=== PATIENT | female | born 1970 | race Caucasian/White ===

== ENCOUNTER 2022-07-19 09:49 | Emergency (ER) | payer MEDICARE, OTHER ==
[~2022-07-19] VITALS: Ht 162.5 cm; Wt 58.9 kg
[2022-07-19 09:57] VITALS: BP 135/58
--- NOTE | 2022-07-19 10:21 | ED Upper Extremity ---
General Chief Complaint: Upper Extremity Stated Complaint: RT HAND INJ Source: patient Exam Limitations: no limitations ([place] ESQUIVEL) History of Present Illness Date Seen by Provider: Jul 19, 2022 Time Seen by Provider: 10:14 Initial Comments 52 F presents to ED with right hand pain that is described as a chronic ache ra garry 01/14 after punching a wall 8 days ago. Pain is located over the dorsal medial aspect of the rt hand with radiation to the ulnar styloid. Diffuse swelling and ecchymosis over the dorsum of the rt hand and medial forearm. Pt reports decreased sensation over the 4th and 5th phalanges and medial forearm. worse with movement. improves with rest. Pt has had a pin placed in her rt 5th digit years ago. Onset: last week Severity: moderate Pain/Injury Location: right wrist, right hand, right 4th finger, right 5th finger Method of Injury: direct blow (punched wall ) Modifying Factors: Improves With Movement (worsens ) ([place] ESQUIVEL) Allergies and Home Medications Allergies Coded Allergies: adhesive (Verified Allergy, Unknown, 07/19/22) aspirin (Verified Allergy, Unknown, 07/19/22) Patient Home Medication List Home Medication List Reviewed: Yes ([place] ESQUIVEL) Review of Systems Constitutional: No chills, No diaphoresis EENTM: no symptoms reported Respiratory: No cough, No short of breath Cardiovascular: No chest pain, No palpitations Gastrointestinal: No abdominal pain, No nausea, No vomiting Genitourinary: no symptoms reported : No Musculoskeletal: joint pain, joint swelling Skin: change in color (ecchymosis of medial rt hand) Psychiatric/Neurological: No Symptoms Reported ([place] ESQUIVEL) Physical Exam Vital Signs Vital Signs - First Documented 07/19/22 09:57 Temp 36.8 Pulse 88 Resp 18 B/P (MAP) 135/58 (83) Pulse Ox 100 O2 Delivery Room Air (JESSICA TABOR MD) Vital Signs Capillary Refill : ([place] ESQUIVEL) Height, Weight, BMI Height: '" Weight: lbs. oz. kg; BMI Method: General Appearance: WD/WN, no apparent distress HEENT: PERRL/EOMI Neck: supple, normal inspection Cardiovascular: normal peripheral pulses, regular rate, rhythm, no murmur Respiratory: chest non-tender, lungs clear, normal breath sounds, no respiratory distress, no accessory muscle use Gastrointestinal: normal bowel sounds, non tender, soft Back: no CVA tenderness Shoulder: normal inspection, non-tender, no evidence of injury, normal ROM Elbow/Forearm: normal inspection, non-tender, no evidence of injury, normal ROM, Bilateral Wrist: Yes normal ROM, Yes ecchymosis (medial aspect ), Yes pain (over ulnar styloid ), Yes soft tissue tenderness, Yes swelling Hand: Right, asymmetry, bone tenderness (over 4th and 5th distal metacarpal ), ecchymosis, limited ROM, swelling (diffuse over medial aspect of rt hand ) Neurologic/Tendon: sensory deficit (over rt 4/5 digits and medial forearm ) Neurologic/Psychiatric: alert, normal mood/affect, oriented x 3 Skin: normal color, warm/dry Lymphatic: no adenopathy (SAUCE,[place]) Procedures/Interventions Splinting and Joint Reduction : Pre-Proc Neuro Vasc Exam: normal Post-Proc Neuro Vasc Exam: normal Hand-Made Type: orthoglass Splint Application: Short Arm (ulnar gutter splint right srist/hand; NVI post splint) (JESSICA TABOR MD) Progress/Results/Core Measures Results/Orders My Orders Orders - JESSICA TABOR MD Hand, Right, 3 Views (07/19/22 10:06) (JESSICA TABOR MD) Vital Signs/I&O 07/19/22 09:57 Temp 36.8 Pulse 88 Resp 18 B/P (MAP) 135/58 (83) Pulse Ox 100 O2 Delivery Room Air (JESSICA TABOR MD) Progress Progress Note : Time: 10:50 Progress Note Patient seen and examined by me I have reviewed the resident's documentation, my findings and plan are as follows 52-year-old female who "punched a wall" 10 days ago. She is right-hand dominant, used her right hand. Complains of residual discomfort, pain and bruising to the dorsum of the right hand and wrist. She states that she was touching on her right fifth metacarpal area this morning and noted some shifting of the bones and was concerned about a fracture. Complains of little diminished sensation to the fourth and fifth finger. Has had previous injury to the fifth finger. With a pin in the tip. Taking Tylenol with minimal relief of symptoms. No other complaints of illness or injury. Pertinent physical exam: Right hand bruising over the dorsum of the hand and wrist, greenish in color. No significant swelling. Diminished range of motion at the 5th metacarpophalangeal joint, with internal rotation of the fifth digit on flexion. No point tenderness over the bones of the wrist. Normal range of motion of the wrist and right elbow. 3 views of the right hand obtained, shows minimally displaced fracture of the distal right fifth metacarpal. Plan: Patient placed in an ulnar gutter splint. Advised to follow-up with orthopedics. Patient is from the [facility]. Will return home within the next week to 10 days. Recommended ibuprofen and keep the splint in place. She verbalized understanding. All questions are sought and answered. (JESSICA TABOR MD) Diagnostic Imaging Diagonstic Imaging: Xray Comments right hand xray: minimally displaced fracture 5th MC (interpreted by me) [facility] [place], [place] NAME: IRAJ CONWAY [facility] REC#: [id number] PT STATUS: REG ER : 1970 PHYSICIAN: JESSICA TABOR MD ADMIT DATE: 07/19/22/ER Signed Date of Exam:07/19/22 HAND, RIGHT, 3 VIEWS INDICATION: Punched a wall, right hand pain. AP, oblique, and lateral views of the right hand are obtained. Previous surgical screw in the distal phalanx of the 5th digit is noted in good alignment. There is an acute fracture of the distal aspect of 5th metacarpal with mild volar angulation. There is no other fracture seen. IMPRESSION: Acute 5th metacarpal fracture distally with no other abnormal finding. Dictated by: Dictated on workstation # [id number] Dict: 07/19/22 1027 Trans: 07/19/22 1051 RACHEL [id number] Interpreted by: RADHA LEY MD Electronically signed by: RADHA LEY MD 07/19/22 105 (JESSICA TABOR MD) Departure Impression Primary Impression: boxer's fracture right hand Disposition: HOME, SELF-CARE Condition: Improved Departure-Patient Inst. Decision time for Depature: 10:53 (JESSICA TABOR MD) Referrals: NO,LOCAL PHYSICIAN (PCP/Family) Primary Care Physician Patient Instructions: Boxer's Fracture (DC), Splint Care Add. Discharge Instructions: Keep the splint in place until you follow-up with an orthopedic doctor. When you get home to [place] please call for a follow-up appointment with an orthopedic doctor. You can take [id number] ibuprofen 3 tablets which is 600 mg every 6 hours with food as needed for pain. Always take ibuprofen with food Keep the right hand elevated to reduce swelling. Return to the emergency department for any new, concerning or emergent complaints. Verification and Attestation of Medical Student E/M Service A medical student performed and documented this service in my presence. I reviewed and verified all information documented by the medical student and made modifications to such information, when appropriate. I personally performed the physical exam and medical decision making. Jessica Tabor, Jul 19, 2022,10:54 (JESSICA TABOR MD) [place] ESQUIVEL Jul 19, 2022 10:21 JESSICA TABOR MD Jul 19, 2022 10:54
--- NOTE | 2022-07-19 10:37 | Diagnostic Imaging Report ---
INDICATION: Punched a wall, right hand pain. AP, oblique, and lateral views of the right hand are obtained. Previous surgical screw in the distal phalanx of the 5th digit is noted in good alignment. There is an acute fracture of the distal aspect of 5th metacarpal with mild volar angulation. There is no other fracture seen. IMPRESSION: Acute 5th metacarpal fracture distally with no other abnormal finding. Dictated by: Dictated on workstation # [id number]
== END 2022-07-19 11:02 | disposition home or self-care (01) ==
LOC: ER 09:54
DX: S62.306A Unspecified fracture of fifth metacarpal bone, right hand, initial encounter for closed fracture (principal); Z28.310 Unvaccinated for COVID-19; Z88.6 Allergy status to analgesic agent; Y04.8XXA Assault by other bodily force, initial encounter
CPT/HCPCS: 28475; 29125; 73130